=== PATIENT | female | born 1980 | race African-American/Black ===

== ENCOUNTER 2017-11-30 10:48 | Emergency (ER) | END 2017-11-30 12:55 | disposition home or self-care (01) ==

== ENCOUNTER 2018-07-18 17:53 | Emergency (ER) | END 2018-07-18 19:27 | disposition home or self-care (01) ==

== ENCOUNTER 2018-07-19 01:01 | Emergency (ER) | END 2018-07-19 01:32 | disposition home or self-care (01) ==

== ENCOUNTER 2019-04-09 18:06 | Emergency (ER) | payer OTHER ==
[~2019-04-09] VITALS: Ht 160 cm; Wt 71.5 kg
[~2019-04-09 18:06] MED LIST: ERYT1OIN6 BOTH EYES; HYDR-4011 PO; IBUP-1542 PO; IPRA14.76; METF-849; NAPR-985 PO; OFLO5DRO46 BOTH EYES; ONDA4TAB8 PO; TRAM50TA2 PO
[2019-04-09 18:36] VITALS: Ht 160 cm; Wt 71.5 kg
[2019-04-09] MEDS ORDERED: morphine 2 MG INJ IV STA (19:13)
[2019-04-09] MEDS ORDERED: KETOROLAC 15 MG INJ IV STA (19:13)
[2019-04-09] MEDS ORDERED: ONDANSETRON 4 MG INJ IV STA (19:13)
[2019-04-09] MEDS ORDERED: SOD CHLORIDE 0.9% 1,000 ML IV STA (19:13)
--- NOTE | 2019-04-09 19:15 | ERD ---
ER Documentation Chief Complaint Chief Complaint sent by pmd for eval of ectopic , c/o pain/vag bleed HPI 38-year-old female, A1, presents to the emergency department, complaining of bilateral pelvic pain for 3 days, associated with vaginal spotting. LMP 03/26/2019; the patient had a negative test at the doctor's office today and she has a history of tubal ligation. ROS All systems reviewed and are negative except as per history of present illness. Medications Home Meds Active Scripts Ondansetron Hcl* (Zofran*) 4 Mg Tablet, 4 MG PO Q8H PRN for NAUSEA AND/OR VOMITING, #12 TAB Prov:ANGELLA MORALES MD 04/09/19 Ibuprofen* (Motrin*) 400 Mg Tab, 400 MG PO Q8, #20 TAB Prov:ANGELLA MORALES MD 04/09/19 Hydrocodone/Acetaminophen (Hughes 5-325 Tablet) 1 Each Tablet, 1 TAB PO BID PRN for PAIN, #6 TAB Prov:ANGELLA MORALES MD 04/09/19 Ofloxacin* (Ocuflox*) 0.3%-5 Ml Ophth Drops, 1 DROP BOTH EYES QID for 7 Days, #1 BOTTLE Prov:KT ZIMMERMAN PA-C 07/19/18 Ibuprofen* (Motrin*) 600 Mg Tab, 600 MG PO Q6, #30 TAB Prov:KT ZIMMERMAN PA-C 07/19/18 Hydrocodone/Acetaminophen (Hughes 5-325 Tablet) 1 Each Tablet, 1 TAB PO Q6H PRN for PAIN, #7 TAB Prov:KT ZIMMERMAN PA-C 07/19/18 Erythromycin Base (Erythromycin) 1 Gm Oint...g., 1 APPLIC BOTH EYES QID for 7 Days Prov:DAVID MOJICA PA-C 07/18/18 Tramadol HCl (Tramadol HCl) 50 Mg Tablet, 50 MG PO Q6 PRN for PAIN, #20 TAB Prov:KT ZIMMERMAN PA-C 11/30/17 Ondansetron Hcl* (Zofran*) 4 Mg Tablet, 4 MG PO Q8H PRN for NAUSEA AND/OR VOMITING, #30 TAB Prov:KT ZIMMERMAN PA-C 11/30/17 Naproxen* (Naprosyn*) 500 Mg Tablet, 500 MG PO BID PRN for PAIN AND/OR INFLAMMATION, #30 TAB Prov:KT ZIMMERMAN PA-C 11/30/17 Reported Medications Albuterol/Ipratropium (Combivent) 14.7 Gm Inha, prn 04/17/12 Metformin* (Glucophage*) 500 Mg Tab, daily 04/17/12 Allergies Allergies: Coded Allergies: Egg (Verified Allergy, Mild, 03/08/10) Sulfa(Sulfonamide Antibiotics) (Verified Allergy, Unknown, RASH, 03/06/10) Uncoded Allergies: DAIRY PRODUCTS (Allergy, Mild, 03/08/10) [id number] (SULFA (SULFONAMIDE ANTIBIOTICS)) (Allergy, Mild, RASH, 03/03/10) PMhx/Soc History of Surgery: Yes (SX FOR REMOVAL OF OVARIAN CYST) Anesthesia Reaction: No Hx Neurological Disorder: No Hx Respiratory Disorders: Yes (ASTHMA) Hx Cardiac Disorders: No Hx Psychiatric Problems: No Hx Miscellaneous Medical Probl: No Hx Alcohol Use: Yes (occasional) Hx Substance Use: Yes (smokes marijuana) Hx Tobacco Use: No Smoking Status: Never smoker Physical Exam Vitals Vital Signs Date Temp Pulse Resp B/P (MAP) Pulse Ox O2 O2 Flow FiO2 Time Delivery Rate 04/09/19 77 18 128/73 99 Room Air 21:49 (91) 04/09/19 98.3 78 18 127/73 100 18:36 (91) Physical Exam Const: No acute distress Head: Atraumatic Eyes: Normal Conjunctiva ENT: Normal External Ears, Nose and Mouth. Neck: Full range of motion. No meningismus. Resp: Clear to auscultation bilaterally Cardio: Regular rate and rhythm, no murmurs Abd: Soft, non tender, non distended. Normal bowel sounds Skin: No petechiae or rashes Back: No midline or flank tenderness Ext: No cyanosis, or edema Neur: Awake and alert Psych: Normal Mood and Affect Result Diagram: 04/09/19199904/09/191999 Results 24 hrs Laboratory Tests Test 04/09/19 19:43 04/09/19 20:00 POC Beta HCG, Qualitative NEGATIVE White Blood Count 5.1 10^3/ul Red Blood Count 3.51 10^6/ul Hemoglobin 11.4 g/dl Hematocrit 32.7 % Mean Corpuscular Volume 93.2 fl Mean Corpuscular Hemoglobin 32.5 pg Mean Corpuscular Hemoglobin Concent 34.9 g/dl Red Cell Distribution Width 12.9 % Platelet Count 247 10^3/UL Mean Platelet Volume 10.3 fl Immature Granulocytes % 0.200 % Neutrophils % 47.7 % Lymphocytes % 44.2 % Monocytes % 5.7 % Eosinophils % 1.8 % Basophils % 0.4 % Nucleated Red Blood Cells % 0.0 /100WBC Immature Granulocytes # 0.010 10^3/ul Neutrophils # 2.5 10^3/ul Lymphocytes # 2.3 10^3/ul Monocytes # 0.3 10^3/ul Eosinophils # 0.1 10^3/ul Basophils # 0.0 10^3/ul Nucleated Red Blood Cells # 0.0 10^3/ul Urine Color STRAW Urine Clarity CLEAR Urine pH 6.0 Urine Specific Dalton 1.006 Urine Ketones NEGATIVE mg/dL Urine Nitrite NEGATIVE mg/dL Urine Bilirubin NEGATIVE mg/dL Urine Urobilinogen NEGATIVE mg/dL Urine Leukocyte Esterase NEGATIVE Ewa/ul Urine Hemoglobin NEGATIVE mg/dL Urine Glucose NEGATIVE mg/dL Urine Total Protein NEGATIVE mg/dl Sodium Level 139 mmol/L Potassium Level 3.8 mmol/L Chloride Level 107 mmol/L Carbon Dioxide Level 25 mmol/L Anion Gap 7 Blood Urea Nitrogen 11 mg/dl Creatinine 0.73 mg/dl Est Glomerular Filtrat Rate mL/min > 60 mL/min Glucose Level 83 mg/dl Calcium Level 9.5 mg/dl Lipase 120 U/L Current Medications Medications Dose Sig/Vanessa Start Time Status Last (Trade) Ordered Route PRN Stop Time Admin Dose Reason Admin Sodium 1,000 ml @ Q1H STAT 04/09/19 DC 04/09/19 Chloride 1,000 mls/hr IV 19:13 19:45 04/09/19 20:12 Morphine 1 mg ONCE STAT 04/09/19 DC 04/09/19 Sulfate IV 19:13 19:45 (morphine) 04/09/19 19:16 Ondansetron 4 mg ONCE STAT 04/09/19 DC 04/09/19 HCl (Zofran IV 19:13 19:45 Inj) 04/09/19 19:16 Ketorolac 15 mg ONCE STAT 04/09/19 DC 04/09/19 Tromethamine IV 19:13 19:52 (Toradol) 04/09/19 19:16 Patient: MAYA HERNANDEZ : 1980 Age: 38 Sex: F [id number] DOS: 04/09/19 1913 Ordering MD: ANGELLA MORALES MD Location: FT Room/Bed: PROCEDURE: US Pelvis. CLINICAL INDICATION: Pelvic pain. History of left ovary removal. LAST MENSTRUAL PERIOD: 03/26/19 TECHNIQUE: Multiple sonographic images of the pelvis were obtained utilizing a transabdominal technique. COMPARISON: 11/30/2017 FINDINGS: The uterus is visualized and measures 7.9 x 4.0 x 4.8 cm. The endometrial echo complex is normal and measures 6 mm. There is no evidence for free fluid. The right ovary has a normal echotexture and measures 2.8 x 2.5 x 2.0 cm. The left ovary is surgically absent. No adnexal masses are noted. Normal right ovarian blood flow. IMPRESSION: Normal pelvic ultrasound. RPTAT:AAJJ Procedures/MDM Vital signs stable. Differential diagnosis considered include UTI, cystitis, , endometriosis, pelvic inflammatory disease, ruptured ovarian cyst, ectopic , appendicitis, kidney stone. Less likely malignancy or acute abdomen but is still a possibility. During the ED course the patient remained stable, no new complaints. Results and clinical impression discussed with the patient who agrees with management. The patient is stable to be treated outpatient and will be discharged home with a Rx for ibuprofen and acetaminophen, some side effects of prescribed medications (headache, rash, nausea, vomiting, diarrhea, drowsiness, habituation, bleeding, hypertension, interactions with other medications) were reviewed. Follow up with the primary care provider in the next 48h has been recommended. If symptoms persist, worsen or new symptoms develop, then patient should return to the ED immediately. Instructions explained and given directly by me to the patient with acknowledgment and demonstrated understanding. Disclaimer: Inadvertent spelling and grammatical errors are likely due to EHR/dictation software use and do not reflect on the overall quality of patient care. Also, please note that the electronic time recorded on this note does not necessarily reflect the actual time of the patient encounter. Departure Diagnosis: Primary Impression: Pelvic pain Condition: Stable Additional Instructions: Thank you very much for allowing us to participate in your care. Your health and safety is our top priority at [facility]. The evaluation in the emergency department has been done to rule out an acute emergency. Chronic, [id number] conditions may have not been evaluated; therefore, you need to follow up with a primary care provider in the next 48h. If symptoms persist, worsen or new symptoms develop, then patient should return to the ED immediately. Call your primary care doctor TOMORROW for an appointment during the next 2-4 days and bring all the information provided. Have prescriptions filled and follow precisely the directions on the label. If the symptoms get worse and your provider is unavailable, return to the Emergency Department immediately. ANGELLA MORALES MD Apr 09, 2019 19:14
[2019-04-09] MEDS ORDERED: IBUP-1561 PO (21:17)
[2019-04-09] MEDS ORDERED: HYDR-4011 PO (21:17)
[2019-04-09] MEDS ORDERED: ONDA4TAB8 PO (21:22)
[2019-04-09 21:49] VITALS: BP 128/73; PULSE 77; RESP 18
== END 2019-04-09 21:51 | disposition home or self-care (01) ==
LOC: FTE 18:06
DX: O26.891 Other specified pregnancy related conditions, first trimester (principal); R10.2 Pelvic and perineal pain; Z3A.00 Weeks of gestation of pregnancy not specified
CPT/HCPCS: 76856; 80048; 81003; 81025; 83690; 85025; J1885; J2270; J2405; J7030; 36415; 96361; 96374; 96375